=== PATIENT | male | born 1985 | race Caucasian/White ===

== ENCOUNTER 2020-02-03 10:23 | Emergency (ER) | payer OTHER ==
[~2020-02-03] VITALS: Ht 182.9 cm; Wt 74.8 kg
[~2020-02-03 10:23] MED LIST: HYDACE5 PO; LORA10ER; NAPR500 PO; NARCAN4 MG; OXYACE5T PO
[2020-02-03] MEDS ORDERED: ANTIDEPRESSANT (11:20)
== END 2020-02-03 12:53 | disposition home or self-care (01) ==
LOC: ER 10:23
DX: R10.31 Right lower quadrant pain (principal); F17.290 Nicotine dependence, other tobacco product, uncomplicated
CPT/HCPCS: 99283

== ENCOUNTER 2020-04-14 21:45 | Inpatient (IN) | payer OTHER ==
[~2020-04-14] VITALS: Ht 182.9 cm; Wt 75.7 kg
[~2020-04-14 21:45] MED LIST changes: +ANTIDEPRESSANT
[2020-04-14 22:43] LABS: BASOPHILS ABSOLUTE AUTO 0.04 K/mm3 (0.00-0.23); BASOPHILS PERCENT AUTO 0 % (0-2); EOSINOPHILS ABSOLUTE AUTO 0.12 K/mm3 (0.00-0.68); EOSINOPHILS PERCENT AUTO 1 % (0-6); Hematocrit 39.2 % (37.0-53.0); Hemoglobin 12.5 g/dL (13.5-17.5); IMMATURE GRAN ABSOLUTE AUTO 0.05 K/mm3 (0.00-0.10); IMMATURE GRAN PERCENT AUTO 0 % (0-1); LYMPHOCYTES ABSOLUTE AUTO 1.14 K/mm3 (0.84-5.20); LYMPHOCYTES PERCENT AUTO 9 % (21-46); MONOCYTES ABSOLUTE AUTO 0.74 K/mm3 (0.16-1.47); MONOCYTES PERCENT AUTO 6 % (4-13); Mean Corpuscular HGB 29.3 pg (26.0-34.0); Mean Corpuscular HGB Conc 31.9 g/dL (31.5-36.5); Mean Corpuscular Volume 92 fL (80-100); Mean Platelet Volume 10.4 fL (9.1-12.4); NEUTROPHILS ABSOLUTE AUTO 11.34 K/mm3 (1.96-9.15); NEUTROPHILS PERCENT AUTO 84 % (41-73); Platelet Count 256 K/mm3 (150-400); Red Blood Cell Count 4.26 M/mm3 (4.30-5.90); White Blood Cell Count 13.43 K/mm3 (4.00-11.30)
[2020-04-14 22:55] LABS: Alanine Aminotransfer (ALT/SGP 18 U/L (12-78); Albumin, Blood 4.1 g/dL (3.4-5.0); Albumin/Globulin Ratio 0.9 (0.8-1.8); Alk Phos 98 U/L (50-136); Anion Gap 6 mmol/L (6-16); Aspartate Aminotrans (AST/SGOT 29 U/L (12-37); Bilirubin, Total 0.9 mg/dL (0.1-1.0); Blood Urea Nitrogen 17 mg/dL (8-24); Bun/Creatinine Ratio 16.8 (12.0-20.0); CO2, Blood 29 mmol/L (21-32); Calcium, Blood 8.7 mg/dL (8.5-10.1); Chloride, Blood 99 mmol/L (98-108); Creatinine, Blood 1.01 mg/dL (0.60-1.20); Globulin, Blood 4.4 g/dL (2.2-4.0); Glomerular Filtration Rate >60 (60-); Glucose, Blood 148 mg/dL (70-99); Potassium, Blood 3.9 mmol/L (3.5-5.5); Sodium, Blood 134 mmol/L (136-145); Total Protein, Blood 8.5 g/dL (6.4-8.2)
[2020-04-15] MEDS ORDERED: SUBOXONE 8 MG-1 EACH PO (01:44)
[2020-04-15 05:59] LABS: Hematocrit 33.6 % (37.0-53.0); Mean Corpuscular HGB 29.7 pg (26.0-34.0); Mean Corpuscular HGB Conc 32.7 g/dL (31.5-36.5); Mean Corpuscular Volume 91 fL (80-100); Mean Platelet Volume 9.8 fL (9.1-12.4); Platelet Count 198 K/mm3 (150-400); RDW Coefficient Variation 12.8 % (11.7-14.2); RDW Standard Deviation 42.6 fL (35.1-46.3); White Blood Cell Count 10.63 K/mm3 (4.00-11.30)
[2020-04-15 06:09] LABS: Anion Gap 6 mmol/L (6-16); Blood Urea Nitrogen 11 mg/dL (8-24); Bun/Creatinine Ratio 11.5 (12.0-20.0); CO2, Blood 28 mmol/L (21-32); Calcium, Blood 8.1 mg/dL (8.5-10.1); Chloride, Blood 103 mmol/L (98-108); Creatinine, Blood 0.96 mg/dL (0.60-1.20); Glomerular Filtration Rate >60 (60-); Glucose, Blood 82 mg/dL (70-99); Potassium, Blood 3.5 mmol/L (3.5-5.5); Sodium, Blood 137 mmol/L (136-145)
--- NOTE | 2020-04-15 06:20 | NUR ---
SHIFT SUMMARY PT WAS A NEW ADMIT DURING THE NIGHT, ARRIVING ON THE FLOOR AT 0110. HE WAS ADMITTED FOR BLE CELLULITIS. PT COMPLAINED OF PAIN AT A 10/10 IN HIS BLE, MOANING AND WRITHING ON THE BED SINCE ADMISSION. HE WAS MEDICATED WITH IV DILAUDID, WHICH HAD MINIMAL EFFECT ON HIS PAIN. THE HOSPITALIST DR CORONA WAS NOTIFIED, AND IV TORADOL ORDERED AND ADMINISTERED, WHICH HELPED THE PT TO SLEEP FOR A COUPLE OF HOURS. 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 HR HAS COME DOWN SINCE ADMISSION, FROM THE 120S TO THE 90S. NSR PER TELE FACULTY PHYSICIAN. ALL OTHER VITALS STABLE. NO ACUTE CHANGES IN PT CONDITION NOTED SINCE ADMISSION. WILL CONTINUE TO MONITOR AND TREAT PER EMAR UNTIL HAND OFF TO DAY SHIFT RN.
[2020-04-15 12:55] LABS: U Amphetamine Screen DETECTED; U Barbituate Screen Not Detected; U Benzodiazapine Screen Not Detected; U Buprenorphine Screen Not Detected; U Cannabinoids Screen DETECTED; U Cocaine Screen Not Detected; U Methadone Screen Not Detected; U Methamphetamine Screen Not Detected; U Opiates Screen DETECTED; U Oxycodone Screen Not Detected; U Phencyclidine Screen Not Detected; U Propoxyphene Screen Not Detected
[2020-04-15 21:48] LABS: Vancomycin, Trough 16.4 ug/mL (5.0-10.0)
--- NOTE | 2020-04-16 03:50 | NUR ---
SUMMARY PT REMAINS PAINFUL. PT TX PER EMAR W/ GOOD RELIEF. PT STATES HAVING DIFFICULTY SLEEPING. PT IS BECOMING MORE ANXIOUS THROUGH THE NIGHT. PT CURRENTLY TRYING TO SLEEP. CALL LIGHT IN REACH.
[2020-04-16 05:11] LABS: Hemoglobin 11.3 g/dL (13.5-17.5); Mean Corpuscular HGB 29.3 pg (26.0-34.0); Mean Corpuscular HGB Conc 32.3 g/dL (31.5-36.5); Mean Corpuscular Volume 91 fL (80-100); Mean Platelet Volume 9.9 fL (9.1-12.4); Platelet Count 200 K/mm3 (150-400); RDW Coefficient Variation 12.9 % (11.7-14.2); RDW Standard Deviation 42.6 fL (35.1-46.3); Red Blood Cell Count 3.86 M/mm3 (4.30-5.90); White Blood Cell Count 8.18 K/mm3 (4.00-11.30)
--- NOTE | 2020-04-16 05:35 | NUR ---
0530 pt reports feeling "sick". when asked he states he is having withdrawls from heroin. pt reports of pain may be more so withdrawls than discomfort. wctm. pt reports that he wants to leave hospital.
--- NOTE | 2020-04-16 08:22 | NUR ---
PT EXHIBITS WITHDRAWL SYMPTOMS THIS MORNING, DR RON DISCONTINUED IV DILAUDID AND ORDERED PO METHADONE. PT REFUSING METHADONE, SAYS IT DOES NOT WORK FOR HIM, MAKES HIM FEEL WORSE. RELAYED THIS TO DR RON AND METHADONE STOPPED AND IV DILAUDID REORDERED. DOSE GIVEN TO PT, WILL MONITOR. PT CONTINUES TO SAY HE IS NOT GOING TO "FEEL LIKE THIS" ALL DAY AND WANTS TO GO HOME. DR RON INFORMED.
[2020-04-16] MEDS ORDERED: IBUP600 PO (10:59)
[2020-04-16] MEDS ORDERED: PROBIOTIC (11:08)
[2020-04-16] MEDS ORDERED: HIGH POTENCY P1 EAC1 PO (11:09)
[2020-04-16] MEDS ORDERED: CLIN150 PO (11:55)
--- NOTE | 2020-04-16 12:30 | NUR ---
DISCHARGE DISCHARGE INSTRUCTIONS, MEDICATION LIST AND FOLLOW UP APPOINTMENTS REVIEWED WITH PT. PT VERBALLY INDICATED UNDERSTANDING OF ALL INSTRUCTIONS RECEIVED. NEW MEDS FAXED TO [facility] PER PT PREFERENCE. ESCORTED OUT VIA W/C
== END 2020-04-16 12:17 | disposition home or self-care (01) | DRG 872 ==
LOC: ER 21:45 → MEDS 23:47 → ENPENDDIS 04-16 10:00 → MEDS 04-16 12:17
PROVIDERS: Emergency Medicine; Internal Medicine; ADMIT Internal Medicine
DX: A41.9 Sepsis, unspecified organism (principal); L03.115 Cellulitis of right lower limb; L03.116 Cellulitis of left lower limb; F19.90 Other psychoactive substance use, unspecified, uncomplicated; F17.290 Nicotine dependence, other tobacco product, uncomplicated
CPT/HCPCS: 36415; 73610; 80048; 80053; 80202; 83605; 85025; 85027; 96365; 96368; 99284-25; J1170; J1885; J2405; J2543; J3370; J7030; J7050

== ENCOUNTER 2020-05-18 09:50 | Inpatient (IN) | payer OTHER ==
[~2020-05-18] VITALS: Ht 182.9 cm; Wt 82.1 kg
[~2020-05-18 09:50] MED LIST changes: +CLIN150 PO; +HIGH POTENCY P1 EAC1 PO; +IBUP600 PO; +PROBIOTIC; +SUBOXONE 8 MG-1 EACH PO; +SUBOXONE 8 MG-1 EACH SL
[2020-05-18] MEDS ORDERED: SERT100 PO (10:06)
[2020-05-18 10:33] LABS: BASOPHILS ABSOLUTE AUTO 0.03 K/mm3 (0.00-0.23); BASOPHILS PERCENT AUTO 0 % (0-2); EOSINOPHILS ABSOLUTE AUTO 0.23 K/mm3 (0.00-0.68); EOSINOPHILS PERCENT AUTO 3 % (0-6); Hematocrit 32.6 % (37.0-53.0); Hemoglobin 10.3 g/dL (13.5-17.5); IMMATURE GRAN ABSOLUTE AUTO 0.02 K/mm3 (0.00-0.10); IMMATURE GRAN PERCENT AUTO 0 % (0-1); LYMPHOCYTES ABSOLUTE AUTO 1.09 K/mm3 (0.84-5.20); LYMPHOCYTES PERCENT AUTO 13 % (21-46); MONOCYTES PERCENT AUTO 6 % (4-13); Mean Corpuscular HGB 28.5 pg (26.0-34.0); Mean Corpuscular HGB Conc 31.6 g/dL (31.5-36.5); Mean Corpuscular Volume 90 fL (80-100); Mean Platelet Volume 9.6 fL (9.1-12.4); NEUTROPHILS ABSOLUTE AUTO 6.39 K/mm3 (1.96-9.15); NEUTROPHILS PERCENT AUTO 77 % (41-73); Platelet Count 226 K/mm3 (150-400); RDW Coefficient Variation 13.8 % (11.7-14.2); RDW Standard Deviation 45.7 fL (35.1-46.3); Red Blood Cell Count 3.62 M/mm3 (4.30-5.90); White Blood Cell Count 8.26 K/mm3 (4.00-11.30)
[2020-05-18 10:45] LABS: International Normalized Ratio 1.02; Prothrombin Time Results 10.9 Sec (9.7-11.5)
[2020-05-18 10:51] LABS: Alanine Aminotransfer (ALT/SGP 26 U/L (12-78); Albumin, Blood 3.6 g/dL (3.4-5.0); Albumin/Globulin Ratio 0.8 (0.8-1.8); Alk Phos 96 U/L (50-136); Anion Gap 4 mmol/L (6-16); Aspartate Aminotrans (AST/SGOT 38 U/L (12-37); Bilirubin, Total 0.7 mg/dL (0.1-1.0); Blood Urea Nitrogen 18 mg/dL (8-24); CO2, Blood 32 mmol/L (21-32); Calcium, Blood 8.8 mg/dL (8.5-10.1); Chloride, Blood 102 mmol/L (98-108); Globulin, Blood 4.4 g/dL (2.2-4.0); Glomerular Filtration Rate >60 (60-); Glucose, Blood 69 mg/dL (70-99); Potassium, Blood 3.9 mmol/L (3.5-5.5); Sodium, Blood 138 mmol/L (136-145); Troponin I <0.015 ng/mL (0.000-0.040)
[2020-05-18 12:46] LABS: Percent Saturation 8.3 % (20.0-50.0)
[2020-05-18 19:19] LABS: U Amphetamine Screen DETECTED; U Cannabinoids Screen DETECTED; U Methamphetamine Screen DETECTED; U Opiates Screen DETECTED
[2020-05-18 19:20] LABS: U Barbituate Screen Not Detected; U Benzodiazapine Screen Not Detected; U Buprenorphine Screen Not Detected; U Cocaine Screen Not Detected; U Methadone Screen Not Detected; U Oxycodone Screen Not Detected; U Phencyclidine Screen Not Detected; U Propoxyphene Screen Not Detected
[2020-05-18 19:36] LABS: Hematocrit 34.5 % (37.0-53.0); Hemoglobin 10.7 g/dL (13.5-17.5)
[2020-05-19 05:25] LABS: BASOPHILS ABSOLUTE AUTO 0.03 K/mm3 (0.00-0.23); BASOPHILS PERCENT AUTO 1 % (0-2); EOSINOPHILS ABSOLUTE AUTO 0.27 K/mm3 (0.00-0.68); EOSINOPHILS PERCENT AUTO 5 % (0-6); Hematocrit 30.3 % (37.0-53.0); Hemoglobin 9.5 g/dL (13.5-17.5); IMMATURE GRAN ABSOLUTE AUTO 0.01 K/mm3 (0.00-0.10); IMMATURE GRAN PERCENT AUTO 0 % (0-1); LYMPHOCYTES ABSOLUTE AUTO 1.14 K/mm3 (0.84-5.20); LYMPHOCYTES PERCENT AUTO 22 % (21-46); MONOCYTES PERCENT AUTO 8 % (4-13); Mean Corpuscular HGB 28.4 pg (26.0-34.0); Mean Corpuscular HGB Conc 31.4 g/dL (31.5-36.5); Mean Corpuscular Volume 91 fL (80-100); Mean Platelet Volume 9.7 fL (9.1-12.4); NEUTROPHILS ABSOLUTE AUTO 3.32 K/mm3 (1.96-9.15); NEUTROPHILS PERCENT AUTO 64 % (41-73); Platelet Count 196 K/mm3 (150-400); RDW Coefficient Variation 13.8 % (11.7-14.2); RDW Standard Deviation 45.8 fL (35.1-46.3); Red Blood Cell Count 3.34 M/mm3 (4.30-5.90); White Blood Cell Count 5.17 K/mm3 (4.00-11.30)
[2020-05-19 05:46] LABS: Alanine Aminotransfer (ALT/SGP 20 U/L (12-78); Albumin, Blood 2.8 g/dL (3.4-5.0); Albumin/Globulin Ratio 0.7 (0.8-1.8); Alk Phos 83 U/L (50-136); Anion Gap 2 mmol/L (6-16); Aspartate Aminotrans (AST/SGOT 26 U/L (12-37); Bilirubin, Total 0.7 mg/dL (0.1-1.0); Blood Urea Nitrogen 12 mg/dL (8-24); Bun/Creatinine Ratio 13.4 (12.0-20.0); CO2, Blood 31 mmol/L (21-32); Calcium, Blood 8.3 mg/dL (8.5-10.1); Chloride, Blood 107 mmol/L (98-108); Creatinine, Blood 0.89 mg/dL (0.60-1.20); Globulin, Blood 4.1 g/dL (2.2-4.0); Glomerular Filtration Rate >60 (60-); Glucose, Blood 81 mg/dL (70-99); Sodium, Blood 140 mmol/L (136-145); Total Protein, Blood 6.9 g/dL (6.4-8.2)
[2020-05-20] MEDS ORDERED: Fruity C250 MG PO (09:47)
[2020-05-20] MEDS ORDERED: ACET325 PO (09:47)
[2020-05-20] MEDS ORDERED: PROBIOTIC1 EA10 PO (09:48)
[2020-05-20] MEDS ORDERED: FERSU300 PO (09:48)
[2020-05-20] MEDS ORDERED: IBUP600 PO (09:49)
[2020-05-20] MEDS ORDERED: CLIN150 PO (09:49)
== END 2020-05-20 14:30 | disposition home or self-care (01) | DRG 872 ==
LOC: ER 09:50 → MEDS 11:41
PROVIDERS: Nurse Practitioner Acute Care; Pharmacist; Physician Assistant; ADMIT Internal Medicine
DX: A41.9 Sepsis, unspecified organism (principal); L03.115 Cellulitis of right lower limb; L03.116 Cellulitis of left lower limb; Z20.828 Contact with and (suspected) exposure to other viral communicable diseases; F17.210 Nicotine dependence, cigarettes, uncomplicated; F32.9 Major depressive disorder, single episode, unspecified; D50.9 Iron deficiency anemia, unspecified; F11.10 Opioid abuse, uncomplicated
CPT/HCPCS: 36415; 71046; 80053; 80202; 82607; 82728; 82746; 82947; 83540; 83550; 83605; 83880; 84484; 85014; 85018; 85025; 85610; 87040; 93005; 93010; 96361; 96374; 99284-25; A9270; J1650; J1885; J3370; J7050; J7120